=== PATIENT | male | born 1955 | race Caucasian/White ===

== ENCOUNTER 2017-02-25 08:57 | Day surgery (SDC) | payer OTHER ==
[2017-02-24 10:27] VITALS: BMI 28.2
[2017-02-25] MEDS ORDERED: DEXAMETHASONE SOD PHOSPHATE 4 MG/1 ML VIAL ONE (09:52)
[2017-02-25] MEDS ORDERED: KETOROLAC TROMETHAMINE 30 MG/1 ML VIAL ONE (09:52)
[2017-02-25] MEDS ORDERED: ceFAZolin SODIUM 1 GM VIAL ONE (09:52)
[2017-02-25] MEDS ORDERED: SODIUM CHLORIDE 0.9% P/F 10 ML VIAL IJ ONE (09:52)
[2017-02-25] MEDS ORDERED: LIDOCAINE HCL/PF 2% SDV 5ML VIAL ONE (09:52)
[2017-02-25] MEDS ORDERED: ePHEDrine SULFATE 50 MG/1 ML AMPULE ONE (09:57)
[2017-02-25] MEDS ORDERED: SUCCINYLCHOLINE CHLORIDE 200 MG/10 ML VIAL ONE (09:57)
[2017-02-25] MEDS ORDERED: PROPOFOL 20 ML ONE (09:57)
[2017-02-25] MEDS ORDERED: oxyCODONE HCL 5 MG TABLET PO PRN (10:08)
[2017-02-25] MEDS ORDERED: ONDANSETRON 4 MG/2 ML VIAL IVPUSH PRN (10:08)
--- NOTE | 2017-02-25 10:11 | HP ---
History & Physical Update - History History: No Change - Physical Physical: No Change - Assessment Assessment: No Change - Plan Plan: No Change (Anal fistula . Procedure planned : proctosigmoidoscopy , anal dilation, anal fistulectomy.)
[2017-02-25] MEDS ORDERED: LACTATED RINGERS SOLUTION 1,000 ML IV SCH (10:15)
[2017-02-25] MEDS ORDERED: MIDAZOLAM HCL 2 MG/2 ML SINGLE DOSE VIAL ONE (10:27)
[2017-02-25] MEDS ORDERED: ceFAZolin SODIUM 1 GM VIAL IVPB ONE (10:35)
[2017-02-25] MEDS ORDERED: BUPIVACAINE HCL/PF 0.5% (5MG/ML) 10 ML VIAL ONE (11:11)
[2017-02-25] MEDS ORDERED: BUPIVACAINE HCL/PF 0.5% (5MG/ML) 10 ML VIAL IJ ONE (11:25)
--- NOTE | 2017-02-25 11:27 | OP ---
Operative Note - Note: Operative Date: 02/25/17 Pre-Operative Diagnosis: Anal fistula at 5 O'clock position. Operation: Proctosigmoidoscopy with anal dilation. Trasnsphncteric anal fistulectomy, first stage , with placement of seton. Findings: Anal fistula at 5 o'clock position , transsphincteric through the external sphincter.. a no 5 merselene seton [placed around the sphincter. Post-Operative Diagnosis: Other (Transsphicteric anal fistula.) Surgeon: Lamont Gomez Anesthesia: General Specimens Removed: Anal fistula. Estimated Blood Loss (mls): 5 Operative Report Dictated: Yes
[2017-02-25 14:33] VITALS: PULSE 90
[2017-02-25 14:40] VITALS: BP 127/78; TEMP 97.6
--- NOTE | 2017-02-25 16:22 | OP ---
DATE OF OPERATION: 02/25/2017 PREOPERATIVE DIAGNOSIS: Anal fistula for 6 months at 5 o'clock position. POSTOPERATIVE DIAGNOSIS: Anal fistula for 6 months at 5 o'clock position. OPERATIVE PROCEDURE: 1. Proctosigmoidoscopy with anal dilation. 2. Excision of transsphincteric anal fistula with placement of seton (stage 1). ANESTHESIA: General anesthesia. OPERATIVE DESCRIPTION: This 61-year-old man with recurrent perianal abscess with an opening on the left side of the buttock at 5 o'clock position, was found to have an anal fistula. Patient was brought in for examination under anesthesia, proctosigmoidoscopy with dilation and anal fistulectomy. Consent was obtained. Risks, benefits, and complications have been discussed with the patient. Patient was given Ancef, placed in lithotomy position. The perineum and rectum were washed and painted with Betadine and draped. A proctosigmoidoscopy and anal dilation was performed, and sigmoidoscope was introduced up to 20 cm. Patient had a good bowel prep. On examination under anesthesia, there was induration at 6 o'clock position in the distal rectum. The rest of the rectum and anal canal was normal. A probe was then introduced to the external opening. This was found to open at the 6 o' clock position at an area of induration at the anorectal junction. An elliptical incision was then made around the probe, about 2 cm distal to the external opening. This was carried in an elliptical fashion towards the anal opening. The skin and subcutaneous fat was incised and the tract was followed all the way to the external sphincter. As it traveled toward the external sphincter, a number 5 Mersilene seton was introduced through the narrow opening and brought out through the external sphincter. The sistuous tract was divided at the level of the external sphincter. The specimen consisting of skin, subcutaneous fat and almost 2 cm of the anal fistula was sent to Pathology. The Mersilene number 5 suture, was then tied around the external sphincter, as a seton. This was left loose for 2 cm beyond the knot. Hemostasis was achieved using electrocautery and it was satisfactory. Then 0.5% Marcaine was injected around the incision and the wound as well as circumferentially into the external sphincter. A wet gauze was placed on the wound, and the dressing applied. Estimated blood loss was 5 mL. Sponge count, instrument counts were correct. Patient extubated and sent to the recovery room in satisfactory and stable condition. Karyna CHILEL/[id number] cc: Shaun Anderson MD MTDD
--- NOTE | 2017-03-02 13:24 | PATH ---
Surgical Pathology Report Patient Name: ILANA GREGORY [facility]. Rec. #: [id number] /Age/Gender: 1955 (Age: 61) / M Account: [id number] Location: [facility] Taken: 02/25/2017 Received: 02/25/2017 Reported: 03/02/2017 Physicians: Melissa Gomez M.D. Specimen(s) Received ANAL FISTULA Clinical History Anal fistula Final Diagnosis ANAL FISTULA, EXCISION: BENIGN SQUAMOUS MUCOSA WITH INFLAMED SINUS TRACT. Electronically Signed Yamil Ayoub M.D. Gross Description Received in formalin labeled "anal fistula," is a 2.5 x 1.5 x 1.0 cm irregular portion of fibrous tissue which is surfaced by morris-brown skin. Sectioning reveals firm fibrous tissue. The specimen is serially sectioned and entirely submitted in 2 cassettes. /02/25/2017 saudi02/25/2017
== END 2017-02-25 14:30 | disposition home or self-care (01) ==
LOC: JASU-SURG 08:57
PROVIDERS: ATTEND Specialist
PROC: 0D7Q8ZZ Dilation of Anus, Via Natural or Artificial Opening Endoscopic (ICD-10-PCS; 2017-02-25)
PROC: 0DBQ0ZZ Excision of Anus, Open Approach (ICD-10-PCS; principal; 2017-02-25 11:00)
DX: K60.3 Anal fistula (principal)
CPT/HCPCS: 94760